=== PATIENT | female | born 1935 ===

== ENCOUNTER 2016-10-23 06:18 | Day surgery (SDC) | payer OTHER ==
[2016-10-16 10:23] VITALS: BMI 28.3
[2016-10-23] MEDS ORDERED: Midazolam 2 MG/2 ML VIAL ONE (07:39)
[2016-10-23] MEDS ORDERED: Propofol 10 mg/ml Inj (20 ML) ONE (07:39)
[2016-10-23] MEDS ORDERED: Lactated Ringer's 500 ML IV ONE (08:03)
[2016-10-23 08:37] VITALS: TEMP 98; O2SAT 98
[2016-10-23 14:08] VITALS: BP 119/57; PULSE 66; RESP 16
== END 2016-10-23 09:40 | disposition home or self-care (01) ==
LOC: C.ENDO 06:18
PROVIDERS: ATTEND Internal Medicine Gastroenterology
DX: K57.30 Diverticulosis of large intestine without perforation or abscess without bleeding (principal); K55.20 Angiodysplasia of colon without hemorrhage; K64.8 Other hemorrhoids
CPT/HCPCS: 45378; J2001; J2250; J2704; J7120